=== PATIENT | female | born 1960 | race Caucasian/White ===

== ENCOUNTER 2019-08-05 09:37 | Outpatient (CLI) | payer OTHER, SELFPAY ==
[2019-08-05 10:00] LABS: Absolute Basophil Count 0.01 k/cumm (0.0-0.2); Absolute Eosinophil Count 0.29 k/cumm (0.0-0.7); Absolute Lymphocyte Count 0.58 k/cumm (1.2-3.4); Absolute Monocyte Count 0.34 k/cumm (0.11-0.7); Absolute Neutrophil Count 1.82 k/cumm (1.2-6.7); Basophils % 0.3; Eosinophils % 9.5; HGB 12.2 g/dL (12.0-15.5); Lymphocytes % 19.1; Mean Corpuscular Hemoglobin 29.6 pg (27.0-33.0); Mean Corpuscular Volume 89.8 fL (80-95); Mean Platelet Volume 9.5 fL (8.0-11.0); Monocytes % 11.2; Neutrophils % 59.9; Platelet Count 284 x1000/uL (130-400); RBC 4.12 m/cumm (4.00-5.20); RBC Distribution Width 17.1 % (11.7-14.6); White Blood Cell Count 3.04 k/cumm (4.4-10.8)
[2019-08-05 10:14] LABS: ALT 36 U/L (14-59); AST 15 U/L (15-37); Alkaline Phosphatase 74 U/L (46-116); Anion Gap 7.9 mmol/L (3-11); BUN 13 mg/dL (7-18); Bilirubin, Total 0.3 mg/dL (0.2-1.0); CO2 28.1 mmol/L (21.0-32.0); CREATININE 0.77 mg/dL (0.55-1.02); Calcium 8.7 mg/dL (8.5-10.1); Chloride 106 mmol/L (98-107); Glucose 122 mg/dL (70-100); Potassium 3.8 mmol/L (3.5-5.1); Sodium 142 mmol/L (136-145); Total Protein 7.5 g/dL (6.4-8.2)
== END 2019-08-05 09:57 ==
PROVIDERS: Radiology Radiation Oncology; PCP Internal Medicine; Visit Provider Registered Nurse Oncology
DX: C54.1 Malignant neoplasm of endometrium (principal)
CPT/HCPCS: 36415; 80053; 85025

== ENCOUNTER 2019-10-28 01:30 | Outpatient (CLI) | payer OTHER, SELFPAY ==
[2019-10-28] MEDS: Omnipaque 350 MG/ML 50 ML BTL IJ (08:09)
[2019-10-28] MEDS: Breeza Beverage 473 ML BTL PO (08:11)
[2019-10-28 08:12] LABS: Absolute Eosinophil Count 0.17 k/cumm (0.0-0.7); Absolute Lymphocyte Count 0.51 k/cumm (1.2-3.4); Absolute Monocyte Count 0.33 k/cumm (0.11-0.7); Absolute Neutrophil Count 1.15 k/cumm (1.2-6.7); Eosinophils % 7.9; HCT 35.8 % (36.0-46.0); HGB 11.8 g/dL (12.0-15.5); Lymphocytes % 23.6; Mean Corpuscular Hemoglobin 31.1 pg (27.0-33.0); Mean Corpuscular Volume 94.5 fL (80-95); Mean Platelet Volume 9.7 fL (8.0-11.0); Monocytes % 15.3; Neutrophils % 53.2; Platelet Count 279 x1000/uL (130-400); RBC 3.79 m/cumm (4.00-5.20); RBC Distribution Width 14.8 % (11.7-14.6); White Blood Cell Count 2.16 k/cumm (4.4-10.8)
[2019-10-28 08:22] LABS: ALT 40 U/L (14-59); AST 28 U/L (15-37); Albumin 4.1 g/dL (3.4-5.0); Alkaline Phosphatase 74 U/L (46-116); Anion Gap 9.5 mmol/L (3-11); BUN 19 mg/dL (7-18); Bilirubin, Total 0.2 mg/dL (0.2-1.0); CO2 26.5 mmol/L (21.0-32.0); CREATININE 0.81 mg/dL (0.55-1.02); Calcium 8.6 mg/dL (8.5-10.1); Chloride 106 mmol/L (98-107); Glucose 95 mg/dL (74-106); Sodium 142 mmol/L (136-145); Total Protein 7.5 g/dL (6.4-8.2)
--- NOTE | 2019-10-28 09:41 | DI.CT_ITS ---
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 Lungs are clear. No pleural effusion. No mediastinal or hilar adenopathy. Tracheobronchial tree appears intact. No axillary or supraclavicular adenopathy. No evidence of pulmonary embolic disease. Thoracic aorta unremarkable. There appears to be mild hepatic steatosis. No focal hepatic or splenic lesion identified. Pancreas appears normal. Gallbladder and bile ducts are CT normal. Adrenals and kidneys are unremarkable in appearance. No hydronephrosis or nephrolithiasis. Abdominal aorta is of normal diameter and no major vascular abnormality is seen. No significant abdominal wall hernia seen. No evident abdominal or pelvic adenopathy. There is wall thickening of the urinary bladder and there is wall thickening of the rectosigmoid. Co rrelation requested regarding history of radiation therapy in this patient with reported history of e ndometrial carcinoma. Subtle decreased attenuation of pelvic bones and lower lumbar spine also noted , again correlate with radiation history. No additional focal bowel pathology seen. Appendix is nor mal. No focal bony lesion identified on scanning of the chest, abdomen or pelvis. IMPRESSION: Nonspecific wall thickening of rectosigmoid colon and urinary bladder, please correlate with history of prior radiation therapy. No focal evidence of metastatic disease in a patient with a history of e ndometrial carcinoma.
[2019-10-28] MEDS: Omnipaque 350 MG/ML 100 ML BTL IJ (09:50)
== END 2019-10-28 01:50 ==
PROVIDERS: PCP Internal Medicine; Visit Provider Obstetrics & Gynecology Gynecologic Oncology
DX: C54.1 Malignant neoplasm of endometrium (principal); N32.89 Other specified disorders of bladder; K63.89 Other specified diseases of intestine; Z92.3 Personal history of irradiation
CPT/HCPCS: 36415; 74177; 80053; 71260; 85025; J3490; Q9967